=== PATIENT | female | born 1975 | race Caucasian/White ===

== ENCOUNTER 2017-02-04 14:06 | Emergency (ER) | payer BC, OTHER ==
[~2017-02-04] VITALS: Ht 172.7 cm; Wt 52.2 kg
[2017-02-04 14:21] VITALS: BP 104/64
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
== END 2017-02-04 15:35 | disposition home or self-care (01) ==
LOC: ER 14:06
DX: K94.23 Gastrostomy malfunction (principal); Z87.820 Personal history of traumatic brain injury; Z88.8 Allergy status to other drugs, medicaments and biological substances; Y83.3 Surgical operation with formation of external stoma as the cause of abnormal reaction of the patient, or of later complication, without mention of misadventure at the time of the procedure
CPT/HCPCS: 43760; 99284-25

== ENCOUNTER 2017-05-05 20:40 | Emergency (ER) | payer BC ==
[~2017-05-05] VITALS: Ht 172.7 cm; Wt 52.2 kg
[2017-05-05 21:30] VITALS: BP 93/70
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
== END 2017-05-05 22:20 | disposition home or self-care (01) ==
LOC: ER 20:40
DX: K94.23 Gastrostomy malfunction (principal); Z87.820 Personal history of traumatic brain injury; Z88.8 Allergy status to other drugs, medicaments and biological substances
CPT/HCPCS: 99284

== ENCOUNTER 2017-07-06 19:11 | Emergency (ER) | payer BC ==
[2017-07-06] MEDS ORDERED: IOHEXOL 240 MG/ML 50ML VIAL. IJ ×2 (20:45)
[2017-07-06] MEDS ORDERED: CONTRAST GIVEN MC ×2 (20:45)
== END 2017-07-06 21:00 | disposition home or self-care (01) ==
LOC: ER 19:11
DX: K94.23 Gastrostomy malfunction (principal); Z87.820 Personal history of traumatic brain injury; Z88.8 Allergy status to other drugs, medicaments and biological substances; Y83.3 Surgical operation with formation of external stoma as the cause of abnormal reaction of the patient, or of later complication, without mention of misadventure at the time of the procedure; Y92.89 Other specified places as the place of occurrence of the external cause
CPT/HCPCS: 43760; 74018; 99284

== ENCOUNTER 2018-10-02 19:31 | Observation (INO) | payer BC ==
[~2018-10-02] VITALS: Ht 170.2 cm; Wt 44.2 kg
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
[2018-10-02] MEDS ORDERED: IV NORMAL SALINE 500ML BAG 500 ML IV ONE (21:30)
[2018-10-02 23:00] VITALS: BP 96/68
--- NOTE | 2018-10-02 23:00 | NUR ---
The patient, HOMER ORTEGA, 43 y/o, F admitted by ANA HERRON MD. Pt. arrived at 2300 by bed from ED. Pt. is non-verbal. Rachid at bedside and was given written information regarding hospital policies, unit procedures and contact persons. Admission assessment done at this time. Bed low. Call light within reach. Will continue to monitor.
--- NOTE | 2018-10-03 01:25 | NUR ---
Pt. is non-verbal Addendum: 10/03/18 at 0225 by EVELYN ESCALONA RN Amended: Links added.
[2018-10-03] MEDS ORDERED: ASPI81TA50 PO (02:36)
[2018-10-03 03:00] VITALS: BP 141/63
[2018-10-03 07:00] VITALS: BP 118/69
--- NOTE | 2018-10-03 07:11 | NUR ---
GI consult called in this morning.
[2018-10-03 09:10] LABS: CALCIUM 9.6 mg/dL (8.5-10.1); CREATININE 0.5 mg/dL (0.6-1.0); GFR 133.4; POTASSIUM 4.3 mmol/L (3.5-5.1)
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
[2018-10-03] MEDS ORDERED: ceFAZolin SODIUM IV Push 1 GM VIAL. IVP ONE (10:00)
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
[2018-10-03 11:00] VITALS: BP 116/80
[2018-10-03] MEDS ORDERED: ceFAZolin SODIUM 1 GM in IV DEXTROSE 5% 100ML 100 ML IV ONE (11:00)
[2018-10-03] MEDS ORDERED: IV RINGERS,LACTATED 1000ML 1,000 ML IV SCH (11:23)
[2018-10-03] MEDS ORDERED: PROPOFOL 20 ML IV ONE (12:06)
[2018-10-03] MEDS ORDERED: ePHEDrine PF IN SALINE 50 MG/10 ML SYRINGE. IV ONE (12:07)
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
--- NOTE | 2018-10-03 12:32 | PDOC4 ---
Operative Note Operative Note EGD with PEG Meds propofol per anesthesia Pre-op dx oropharyngeal dysphagia post-op dx non-erosive gastritis S/p 20 FR Bard G tube placement Plan resume diet and meds release home KAT MARAVILLA MD October 03, 2018 12:32
[2018-10-03 12:51] LABS: BASO % 0 % (0-3); EOS # 0.3 x10^3/uL (0.0-0.7); EOS % 5 % (0-3); HEMATOCRIT 39.7 % (36.0-47.0); HEMOGLOBIN 12.9 g/dL (12.0-15.5); LYMPH # 1.4 x10^3/uL (1.0-4.8); LYMPH % 29 % (24-48); MEAN CORPUSCULAR HEMOGLOBIN 32 pg (25-35); MEAN CORPUSCULAR HGB CONC 33 g/dL (31-37); MEAN CORPUSCULAR VOLUME 98 fL (79-100); MONO # 0.3 x10^3/uL (0.0-1.1); MONO % 7 % (0-9); NEUT # 2.8 x10^3uL (1.8-7.7); NEUT % 59 % (31-73); PLATELET COUNT 124 x10^3/uL (140-400); RED BLOOD COUNT 4.06 x10^6/uL (3.50-5.40); RED CELL DISTRIBUTION WIDTH 13.1 % (11.5-14.5); WHITE BLOOD COUNT 4.8 x10^3/uL (4.0-11.0)
[2018-10-03 12:57] VITALS: BP 98/56
--- NOTE | 2018-10-03 14:00 | DISCH ---
DISCHARGE INSTRUCTIONS Condition on Discharge Condition on Discharge: Stable Activity After Discharge Activity Instructions for Disc: Activity as tolerated Lifting Instructions after Dis: No heavy lifting Exercise Instruction after Dis: Progress as tolerated Driving Instructions after Dis: Do not drive Weight Bearing Status after Di: As tolerated Diet after Discharge Liquid Texture: NPO Contacting the DR. after DC Call your doctor for: If your condition worsens Follow-Up Follow Up With: Primary Care Physician within 1 week. Treatment/Equipment after DC Adaptive Equipment Issued: None MITCH STODDARD MD October 03, 2018 13:59
--- NOTE | 2018-10-03 14:10 | NUR ---
Discharge Note: HOMER ORTEGA Discharge instructions and discharge home medications reviewed with Spouse and a copy given. All questions have been answered and understanding verbalized. Outpatient information given to Rachid. The following instructions and handouts were given: discharge instructions, peg tube care, resume medication and feedings, follow up appointment. Discontinued lines and drains: IV line in left hand removed, catheter tip intact. Patient discharged to home with self care with Rachid, wheelchair used for mobility to discharge vehicle.
[2018-10-03 17:22] LABS: PLT ESTIMATE DECREASED (ADEQUATE)
== END 2018-10-03 14:10 | disposition home or self-care (01) ==
LOC: ER 19:31 → 4 NORTH 22:23
PROVIDERS: ADMIT Internal Medicine; ATTEND Internal Medicine
DX: K94.23 Gastrostomy malfunction (principal); R13.12 Dysphagia, oropharyngeal phase; S72.91XA Unspecified fracture of right femur, initial encounter for closed fracture; S32.9XXA Fracture of unspecified parts of lumbosacral spine and pelvis, initial encounter for closed fracture; V89.2XXA Person injured in unspecified motor-vehicle accident, traffic, initial encounter; Y93.89 Activity, other specified; Y92.89 Other specified places as the place of occurrence of the external cause; Y99.8 Other external cause status; K29.70 Gastritis, unspecified, without bleeding
CPT/HCPCS: 36415; 43246; 80048; 85025; 96361; 96374; 96375; 99284; G0378; J0690; J2060; J2704; J7040; G0379; J0171; J7120

== ENCOUNTER → 2021-07-21 | Day surgery (SDC) | payer BC ==
[~2021-07-21] VITALS: Ht 167.6 cm; Wt 47.0 kg
[~2021-07-21] MED LIST: ASPI81TA50 PO; DEXMEDETOMIDINE 400 MCG in IV NORMAL SALINE 100ML 96 ML IV ONE; DOCU-109 PO; IV RINGERS,LACTATED 1000ML 1,000 ML IV SCH; KETAMINE HCL 500 MG/10 ML VIAL. IM ONE; PROPOFOL 10 MG/ML (20ML) VIAL. IV ONE
[2021-07-21 08:22] VITALS: BP 88/72
--- NOTE | 2021-07-21 09:28 | CONS ---
DATE OF CONSULTATION: 07/21/2021 REASON FOR CONSULTATION: Oropharyngeal dysphagia. HISTORY OF PRESENT ILLNESS: A 46-year-old female with past medical history significant for quadriplegia, seen for G-tube replacement, has been malfunctioning recently, replace is needed for caloric intake and hydration. She is otherwise without additional complaints at the present time. PAST MEDICAL HISTORY: Quadriplegia, oropharyngeal dysphagia. ALLERGIES: AMANTADINE. MEDICATIONS: Aspirin, docusate. FAMILY AND SOCIAL HISTORY: Significant for diabetes, hypertension, multiple grandparents. SOCIAL HISTORY: Drinker in the past. Nonsmoker. PAST SURGICAL HISTORY: She is status post PEG and tracheostomy. REVIEW OF SYSTEMS: Per records. PHYSICAL EXAMINATION: GENERAL: Reveals a thin female, who moans. VITAL SIGNS: Temperature 97.4, pulse is 125, respiratory rate is 18. LUNGS: Clear. CARDIOVASCULAR: Reveals an S1, S2, without S3, S4 or appreciable murmur. ABDOMEN: Reveals a soft abdomen with intact G-tube. EXTREMITIES: Reveals quadriplegia. IMPRESSION: Oropharyngeal dysphagia. Recommend NG tube replacement, EGD. Risks and benefits were discussed with the patient and family including risk of hemorrhage and perforation of site. She was willing to proceed at this time. ELLIOT DR: Libia TID: [id number]
[2021-07-21 10:05] VITALS: BP 100/69
== END | disposition home or self-care (01) ==
LOC: ENDOS 07:55
PROVIDERS: ATTEND Internal Medicine Gastroenterology
DX: R13.12 Dysphagia, oropharyngeal phase (principal); K29.50 Unspecified chronic gastritis without bleeding; K94.23 Gastrostomy malfunction; K31.89 Other diseases of stomach and duodenum; Z79.82 Long term (current) use of aspirin; Z79.899 Other long term (current) drug therapy; Z98.890 Other specified postprocedural states; Z82.49 Family history of ischemic heart disease and other diseases of the circulatory system; Z83.3 Family history of diabetes mellitus
CPT/HCPCS: 43246; J2704; J3490

== ENCOUNTER 2021-07-26 15:01 | Emergency (ER) | payer BC ==
[~2021-07-26] VITALS: Ht 175.3 cm; Wt 43.1 kg
[~2021-07-26 15:01] MED LIST changes: -DEXMEDETOMIDINE 400 MCG in IV NORMAL SALINE 100ML 96 ML IV ONE; -IV RINGERS,LACTATED 1000ML 1,000 ML IV SCH; -KETAMINE HCL 500 MG/10 ML VIAL. IM ONE; -PROPOFOL 10 MG/ML (20ML) VIAL. IV ONE
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
[2021-07-26] MEDS ORDERED: IOHEXOL 240 MG/ML 50ML VIAL. PO ONE (16:30)
[2021-07-26 16:39] VITALS: BP 107/68
--- NOTE | 2021-07-26 17:33 | RAD ---
Exam: Abdomen one view INDICATION: G-tube placement confirmation TECHNIQUE: Supine view the abdomen Comparisons: Abdomen radiograph 07/06/2017 FINDINGS: There is a percutaneous gastric tube which is opacified with oral contrast. Oral contrast is also not ed within the stomach. No extravasated oral contrast is seen. Air and stool are noted throughout the colon to level the rectum in a nonobstructive bowel gas patter n. IMPRESSION: No extravasated oral contrast suggest leak. Lines and tubes described above. Electronically signed by: Buddy Gonsalez MD (07/26/2021 5:31 PM) EVANGELIST
== END 2021-07-26 17:21 | disposition home or self-care (01) ==
LOC: ER 15:01
DX: K94.23 Gastrostomy malfunction (principal); Z88.8 Allergy status to other drugs, medicaments and biological substances; Y83.8 Other surgical procedures as the cause of abnormal reaction of the patient, or of later complication, without mention of misadventure at the time of the procedure; Y92.89 Other specified places as the place of occurrence of the external cause
CPT/HCPCS: 43762; 74018; 96372; 99284; J2060; Q9966

== ENCOUNTER 2021-08-19 15:16 | Emergency (ER) | payer BC ==
[~2021-08-19] VITALS: Ht 172.7 cm; Wt 65.0 kg
[2021-08-19 15:20] VITALS: BP 153/67
[2021-08-19] MEDS ORDERED: CONTRAST GIVEN. MC PRN (16:15)
[2021-08-19] MEDS ORDERED: IOHEXOL 240 MG/ML 50ML VIAL. PO ONE (16:15)
--- NOTE | 2021-08-19 16:17 | RAD ---
EXAM: Abdomen, single view. HISTORY: G-tube placement. COMPARISON: 07/26/2021 FINDINGS: A frontal view of the abdomen is obtained. There is a gastrostomy tube overlying the left u pper quadrant and contrast within the stomach. There is no contrast extravasation. There is an IVC fi lter overlying expected position. There is right nephrolithiasis. There are fixation screws traversin g the sacroiliac joints. There is gas and stool throughout the colon and rectal vault. There is no ev idence of bowel obstruction. IMPRESSION: Gastrostomy tube in expected position. There is no evidence of contrast extravasation. No bowel obstruction. Electronically signed by: Barb Leal MD (08/19/2021 4:14 PM) [id number]
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
== END 2021-08-19 16:40 | disposition home or self-care (01) ==
LOC: ER 15:16
DX: Y83.3 Surgical operation with formation of external stoma as the cause of abnormal reaction of the patient, or of later complication, without mention of misadventure at the time of the procedure (principal); K94.23 Gastrostomy malfunction; Y92.89 Other specified places as the place of occurrence of the external cause
CPT/HCPCS: 43762; 74018; 99284; Q9966

== ENCOUNTER → 2021-10-29 | Day surgery (SDC) | payer BC ==
[~2021-10-29] VITALS: Ht 172.7 cm; Wt 65.0 kg
[~2021-10-29] MED LIST changes: +IV RINGERS,LACTATED 1000ML 1,000 ML IV SCH; +PROPOFOL 10 MG/ML (20ML) VIAL. IV ONE
[2021-10-29 06:52] VITALS: BP 108/72
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
[2021-10-29 08:45] VITALS: BP 114/64
== END | disposition home or self-care (01) ==
LOC: ENDOS 06:29
PROVIDERS: ATTEND Internal Medicine Gastroenterology
DX: R13.12 Dysphagia, oropharyngeal phase (principal); K29.50 Unspecified chronic gastritis without bleeding; K94.23 Gastrostomy malfunction; K31.89 Other diseases of stomach and duodenum; Z79.82 Long term (current) use of aspirin; Z79.899 Other long term (current) drug therapy; Z98.890 Other specified postprocedural states
CPT/HCPCS: 43246; 87077; 87086; J2704